=== PATIENT | female | born 1960 | race African-American/Black ===

== ENCOUNTER 2018-08-09 11:09 | Emergency (ER) | payer MEDICAID ==
[~2018-08-09] VITALS: Ht 170.2 cm; Wt 50.0 kg
[2018-08-09] MEDS ORDERED: ONDANSETRON HCL 4MG/2ML INJ IV STA (12:05)
[2018-08-09] MEDS ORDERED: MORPHINE SULFATE 10 MG/ML CPJ IV ONE (12:15)
[2018-08-09] MEDS ORDERED: ONDANSETRON HCL 4MG/2ML INJ IV ONE (12:15)
[2018-08-09 12:56] LABS: HEMATOCRIT. 41.8 % (36.0-48.0); HEMOGLOBIN. 13.8 g/dL (12.0-16.0); MEAN CORPUSCULAR HEMOGLOBIN 30.1 pg (28.0-32.0); MEAN CORPUSCULAR VOLUME 90.8 fL (81.0-99.0); MEAN PLATELET VOLUME 8.9 fl (7.4-10.4); PLATELET 218 x1000/uL (130-400); RED CELL DISTRIBUTION WIDTH 15.8 % (11.6-14.6)
[2018-08-09 13:02] LABS: CHLORIDE 108 mEq/L (98-107)
[2018-08-09 13:03] LABS: INR 1.1; PROTHROMBIN TIME 10.8 sec (9.1-11.1)
[2018-08-09 13:21] LABS: PLATELET ESTIMATE NORMAL
[2018-08-09] MEDS ORDERED: IOHEXOL-300 100 ML BOTTLE ONE (15:15)
[2018-08-09 15:46] LABS: CLARITY URINE CLEAR (CLEAR); COLOR URINE YELLOW (YELLOW); KETONES URINE TRACE (NEGATIVE); LEUKOCYTE ESTERASE URINE TRACE (NEGATIVE); NITRITE URINE NEGATIVE (NEGATIVE); OCCULT BLOOD URINE 2+ (NEGATIVE); PROTEIN URINE NEGATIVE (NEGATIVE); SPECIFIC GRAVITY URINE 1.049 (1.005-1.030)
[2018-08-09 17:10] VITALS: BP 107/57
== END 2018-08-09 17:21 | disposition home or self-care (01) ==
LOC: ER 11:09
DX: R10.33 Periumbilical pain (principal); R11.10 Vomiting, unspecified; F17.200 Nicotine dependence, unspecified, uncomplicated; Z90.49 Acquired absence of other specified parts of digestive tract; Z90.710 Acquired absence of both cervix and uterus
CPT/HCPCS: 36415; 71045; 74177; 80053; 81003; 83690; 85025; 85610; 96374; 96375; 99284; J2270; J2405; Q9967

== ENCOUNTER 2020-03-03 15:12 | Emergency (ER) | payer MEDICAID ==
[~2020-03-03] VITALS: Ht 165.1 cm; Wt 52.0 kg
[2020-03-03] MEDS ORDERED: SODIUM CHLORIDE 0.9% 1,000 ML IV ONE (15:59)
[2020-03-03 16:33] LABS: BASOPHILS % 0.5 % (0.0-2.0); EOSINOPHILS % 0.7 % (0.0-5.0); HEMATOCRIT. 35.6 % (36.0-48.0); HEMOGLOBIN. 11.7 g/dL (12.0-16.0); LYMPHOCYTES % 12.7 % (20.0-50.0); MEAN CORPUSCULAR HEMOGLOBIN 29.5 pg (28.0-32.0); MEAN CORPUSCULAR VOLUME 89.5 fL (81.0-99.0); MEAN PLATELET VOLUME 8.1 fl (7.4-10.4); MONOCYTES % 4.6 % (2.0-8.0); NEUTROPHILS % 81.5 % (40.0-76.0); PLATELET 189 x1000/uL (130-400); RED BLOOD CELL COUNT 3.98 mill/uL (4.2-5.4); RED CELL DISTRIBUTION WIDTH 15.6 % (11.6-14.6)
[2020-03-03 16:38] LABS: CHLORIDE 110 mEq/L (98-107)
[2020-03-03 16:42] LABS: ETHANOL BLOOD < 10 mg/dL
[2020-03-03 19:16] LABS: CLARITY URINE CLEAR (CLEAR); COLOR URINE DARK YELLOW (YELLOW); KETONES URINE TRACE (NEGATIVE); LEUKOCYTE ESTERASE URINE NEGATIVE (NEGATIVE); NITRITE URINE NEGATIVE (NEGATIVE); OCCULT BLOOD URINE 2+ (NEGATIVE); PROTEIN URINE 2+ (NEGATIVE); SPECIFIC GRAVITY URINE 1.024 (1.005-1.030)
[2020-03-03 19:25] LABS: *AMPHETAMINES SCREEN URINE NEGATIVE (NEGATIVE); *BARBITURATES SCREEN URINE NEGATIVE (NEGATIVE); CANNABINOID URINE SCREEN PRESUMTIVE POSITIVE (NEGATIVE)
[2020-03-03 19:26] LABS: *BENZODIAZEPINES SCREEN URINE NEGATIVE (NEGATIVE); *COCAINE SCREEN URINE NEGATIVE (NEGATIVE); METHADONE URINE SCREEN NEGATIVE (NEGATIVE); OPIATES URINE SCREEN NEGATIVE (NEGATIVE); PHENCYCLIDINE URINE SCREEN NEGATIVE (NEGATIVE)
[2020-03-03] MEDS ORDERED: LEVETIRACETAM 1000MG/100ML 100 ML IV ONE (21:45)
[2020-03-03] MEDS ORDERED: DEXAMETHASONE 4MG/ML 1ML VIAL IV ONE (21:45)
[2020-03-03] MEDS ORDERED: GADOBENATE DIMEGLUMINE 529 MG/ML 10ML IV ONE (23:25)
[2020-03-03] MEDS ORDERED: LEVETIRACETAM 1000MG/100ML 100 ML IV NR (23:30)
[2020-03-04 01:19] VITALS: BP 137/70
== END 2020-03-04 02:22 | disposition short-term general hospital (02) ==
LOC: ER 15:12 → EDBEDREQ 21:36 → EDBEDREQSVC 21:36 → EDBEDREQTM 21:36 → CANBEDREQ 23:07 → ER 03-04 02:22
DX: R55 Syncope and collapse (principal); R42 Dizziness and giddiness; C71.9 Malignant neoplasm of brain, unspecified; Z11.59 Encounter for screening for other viral diseases
CPT/HCPCS: 36415; 70450; 70553; 71045; 80053; 80305; 80320; 81003; 82962; 84484; 85025; 93005; 96361; 96365; 96366; 96375; 99285; A9577; C9803; J1100; J1953; J7030; U0003; G0480